=== PATIENT | female | born 1940 | race Caucasian/White ===

== ENCOUNTER 2018-01-09 08:58 | Emergency (ER) | payer MEDICARE, OTHER ==
[~2018-01-09] VITALS: Ht 157.5 cm; Wt 75.7 kg
[~2018-01-09 08:58] MED LIST: DEXILANT60 MG PO; KEFLEX500 MG; LISINOPRIL10 MG PO; LISINOPRIL5 MG; PANTOPRAZOLE SO40 MG PO
[2018-01-09 11:44] LABS: BASOPHILS % 0.7 % (0.0-1.0); EOSINOPHILS # (AUTO) 0.1 (0.0-0.4); EOSINOPHILS % 1.4 % (0.0-6.0); HEMATOCRIT 39.3 % (34.2-44.1); HEMOGLOBIN 12.9 g/dL (12.0-16.0); LYMPHOCYTES # (AUTO) 1.4 (1.0-3.2); MEAN CORPUSCULAR HEMOGLOBIN 28.4 pg (28-32); MEAN CORPUSCULAR HGB CONC 32.8 g/dL (31-35); MEAN CORPUSCULAR VOLUME 86.4 fL (81-99); MONOCYTES # (AUTO) 0.4 (0.2-0.8); MONOCYTES % 7.6 % (4.4-11.3); NEUTROPHILS # (AUTO) 3.6 (2.1-6.9); NEUTROPHILS % 65.1 % (38.7-80.0); PLATELET COUNT 220 x10e3/uL (140-360); RED BLOOD COUNT 4.55 x10e6/uL (3.6-5.1); RED CELL DISTRIBUTION WIDTH 13.2 % (11.7-14.4)
--- NOTE | 2018-01-09 11:49 | Diagnostic Imaging Report ---
PROCEDURE: CT ABDOMEN AND PELVIS WITHOUT CONTRAST TECHNIQUE: The abdomen and pelvis were scanned utilizing a multidetector helical scanner from the diaphragm to the lesser trochanter after the oral administration of 250 cc of H20. No IV contrast was administered per request. Coronal and sagittal multiplanar reformations were obtained. COMPARISON: None. INDICATIONS: ABDOMEN PAIN FINDINGS: ABSENCE OF INTRAVENOUS CONTRAST DECREASES SENSITIVITY FOR DETECTION OF FOCAL LESIONS AND VASCULAR PATHOLOGY. LOWER THORAX: Small bilateral fat containing Bochdalek hernias. There is an 8 mm ground glass opacity in the right middle lobe on series 2, image 3. Additional pleural based right lower lobe solid nodule measuring 7 mm on series 3, image 19. HEPATOBILIARY: Left hepatic lobe cyst. Right hepatic lobe subcentimeter hypodensity, too small to characterize, but likely a cyst. No biliary ductal dilatation. Status post cholecystectomy. SPLEEN: No splenomegaly. PANCREAS: No focal masses or ductal dilatation. ADRENALS: No adrenal nodules. KIDNEYS/URETERS: No hydronephrosis, stones, or solid mass lesions. PELVIC ORGANS/BLADDER: Unremarkable. PERITONEUM / RETROPERITONEUM: No free air or fluid. There is a 2.5 x 3.2 x 3.4 cm well circumscribed mesenteric mass without calcification or surrounding scarring. LYMPH NODES: No lymphadenopathy. Small subcentimeter mesenteric lymph nodes surrounding the mesenteric mass. VESSELS: Atherosclerotic calcifications of the abdominal aorta and branch vessels. Left upper abdominal varicosities. GI TRACT: No distention or wall thickening. Diverticulosis without CT evidence of diverticulitis. BONES AND SOFT TISSUES: Unremarkable. IMPRESSION: Solid, well-circumscribed mesenteric mass measuring up to 3.2 cm. No evidence of surrounding lymphadenopathy. Differential includes desmoid tumor, although lymphoma and carcinoid are also on the differential. A contrast enhanced CT of the chest, abdomen, and pelvis is recommended for further evaluation. Image guided biopsy may also be considered. A 7 mm solid right lower lobe solid pulmonary nodule and 8 mm ground glass nodule in the middle lobe are indeterminate. A contrast enhanced chest CT is recommended for further evaluation. Dictated by: SERA WILEY M.D. on 01/09/2018 at 11:54 Electronically approved by: SERA WILEY M.D. on 01/09/2018 at 11:54
[2018-01-09 11:51] LABS: INR 1.19; PARTIAL THROMBOPLASTIN TIME 32.2 seconds (23.8-35.5); PROTHROMBIN TIME 14.2 seconds (11.9-14.5)
[2018-01-09 12:00] LABS: ALANINE AMINOTRANSFERASE 8 IU/L (0-55); ALBUMIN/GLOBULIN RATIO 1.3 (0.8-2.0); ALKALINE PHOSPHATASE 65 IU/L (40-150); ANION GAP 13.7 mmol/L (8-16); BLOOD UREA NITROGEN 16 mg/dL (7-26); BUN/CREATININE RATIO 20 (6-25); CALCIUM 9.1 mg/dL (8.4-10.2); CARBON DIOXIDE 24 mmol/L (22-29); CHLORIDE 105 mmol/L (98-107); CREATINE KINASE 74 IU/L (29-168); EST GLOMERULAR FILTRATION RATE > 60 ML/MIN (60-); GLUCOSE 93 mg/dL (74-118); LIPASE 26 U/L (8-78); POTASSIUM 3.7 mmol/L (3.5-5.1); SODIUM 139 mmol/L (136-145)
[2018-01-09 12:03] LABS: BILIRUBIN,URINE NEGATIVE (NEGATIVE); CLARITY,URINE CLEAR (CLEAR); COLOR,URINE YELLOW (YELLOW); KETONES,URINE TRACE (NEGATIVE); LEUKOCYTE ESTERASE ,URINE TRACE (NEGATIVE); NITRITE,URINE NEGATIVE (NEGATIVE); PROTEIN,URINE DIPSTICK NEGATIVE (NEGATIVE); URINE UROBILINOGEN 0.2 mg/dL (0.2 - 1)
--- NOTE | 2018-01-09 12:07 | Diagnostic Imaging Report ---
Examination: CT head without contrast Clinical Indication: Unsteady gait. Technique: Transaxial noncontrast images from the skull base through the vertex were obtained. Sagittal and coronal reformatted images were done. Comparison: Head CT performed July 20, 2016. Findings: Scalp: No abnormalities. Bones: Intact. No fractures. No blastic or lytic lesions. Brain sulci: Mild volume loss for patient's age. Ventricles: No hydrocephalus. Extra-axial space: No abnormalities. Parenchyma: No masses, hemorrhage, or acute or chronic cortical based vascular insults. Suprasellar region: No abnormalities. Craniocervical junction: The foramen magnum is patent. No Chiari one malformation. Incidental findings: Atherosclerotic calcification of the cavernous and supraclinoid internal carotid arteries. Impression: 1. No acute intracranial finding when compared to prior head CT performed July 20, 2016. 2. Mild volume loss. Signed by: Dr. Karen García M.D. on 01/09/2018 12:03 PM
[2018-01-09 12:19] LABS: BACTERIA,URINE RARE /HPF; EPITHELIAL CELLS,URINE FEW /LPF; RBC,URINE 0-5 /HPF (0-5)
[2018-01-09 12:21] LABS: TRANSITIONAL EPI CELLS,URINE RARE
[2018-01-09] MEDS ORDERED: KEFLEX500 MG PO (12:38)
== END 2018-01-09 13:32 | disposition home or self-care (01) ==
LOC: ER 08:58
DX: R53.1 Weakness (principal); R55 Syncope and collapse; N39.0 Urinary tract infection, site not specified
CPT/HCPCS: 36415; 70450; 74176; 80053; 81001; 82550; 82553; 83605; 83690; 84484; 85025; 85610; 85730; 93005; 99284

== ENCOUNTER 2022-09-23 02:54 | Inpatient (IN) | payer MEDICARE, OTHER ==
[~2022-09-23] VITALS: Ht 152.4 cm; Wt 72.1 kg
[~2022-09-23 02:54] MED LIST changes: +KEFLEX500 MG PO
[2022-09-23] MEDS ORDERED: ENOXAPARIN INJ 80 MG/0.8 ML SYR SC ONE ×2 (03:00→03:04)
[2022-09-23] MEDS ORDERED: METOPROLOL TARTRATE INJ 1 MG/ML VIAL IV ONE (03:00)
[2022-09-23] MEDS ORDERED: METOPROLOL TARTRATE 25 MG TAB PO ONE ×2 (03:00→04:15)
[2022-09-23] MEDS ORDERED: METOPROLOL TARTRATE INJ 1 MG/ML VIAL ONE (03:04)
[2022-09-23] MEDS ORDERED: METOPROLOL TARTRATE 25 MG TAB ONE (03:04)
[2022-09-23 03:08] LABS: BASOPHILS # (AUTO) 0.1 (0.0-0.1); BASOPHILS % 0.7 % (0.0-1.0); EOSINOPHILS # (AUTO) 0.5 (0.0-0.4); EOSINOPHILS % 6.5 % (0.0-6.0); HEMATOCRIT 40.1 % (34.2-44.1); HEMOGLOBIN 13.1 g/dL (12.0-16.0); LYMPHOCYTES # (AUTO) 2.7 (1.0-3.2); MEAN CORPUSCULAR HEMOGLOBIN 28.4 pg (28-32); MEAN CORPUSCULAR HGB CONC 32.7 g/dL (31-35); MONOCYTES # (AUTO) 0.7 (0.2-0.8); MONOCYTES % 8.7 % (4.4-11.3); NEUTROPHILS # (AUTO) 3.8 (2.1-6.9); PLATELET COUNT 219 x10e3/uL (140-360); RED BLOOD COUNT 4.61 x10e6/uL (3.6-5.1); RED CELL DISTRIBUTION WIDTH 14.1 % (11.7-14.4)
[2022-09-23 03:18] LABS: INR 0.86; PROTHROMBIN TIME 12.2 seconds (11.9-14.5)
[2022-09-23 03:19] LABS: PARTIAL THROMBOPLASTIN TIME 32.7 seconds (23.8-35.5)
[2022-09-23 03:25] LABS: ALANINE AMINOTRANSFERASE 9 IU/L (0-55); ALBUMIN 4.1 g/dL (3.5-5.0); ALBUMIN/GLOBULIN RATIO 1.2 (0.8-2.0); ALKALINE PHOSPHATASE 69 IU/L (40-150); ANION GAP 15.3 mmol/L (8-16); BLOOD UREA NITROGEN 19 mg/dL (7-26); BUN/CREATININE RATIO 23 (6-25); CALCIUM 9.3 mg/dL (8.4-10.2); CARBON DIOXIDE 24 mmol/L (22-29); CHLORIDE 104 mmol/L (98-107); CREATINE KINASE 61 IU/L (29-168); CREATININE, SERUM 0.83 mg/dL (0.57-1.11); GLUCOSE 116 mg/dL (74-118); POTASSIUM 3.3 mmol/L (3.5-5.1); SODIUM 140 mmol/L (136-145)
[2022-09-23] MEDS ORDERED: METOPROLOL TARTRATE INJ 1 MG/ML VIAL IV PRN (04:15)
[2022-09-23] MEDS ORDERED: METOPROLOL TARTRATE 50 MG TAB PO SCH (04:15)
[2022-09-23] MEDS ORDERED: ONDANSETRON HCL INJ 2MG/ML 2ML 2 MG/ML VIAL IV PRN (04:15)
[2022-09-23] MEDS ORDERED: SODIUM CHLORIDE FLUSH 10 ML SYR INJ PRN (04:15)
[2022-09-23 07:56] VITALS: BP 112/87
[2022-09-23 08:31] VITALS: BP 115/74
[2022-09-23 09:00] VITALS: BP 115/74
[2022-09-23] MEDS ORDERED: METOPROLOL SUCCINATE 50 MG TAB XL PO SCH (09:45)
[2022-09-23] MEDS: APIXAB 2.5 MG TABLET PO SCH ×2 (10:52→17:02)
[2022-09-23] MEDS ORDERED: HYDROCHLOROTH12.5 MG PO (10:52)
[2022-09-23 12:12] VITALS: BP 120/73
[2022-09-23 12:53] LABS: CREATINE KINASE MB 1.2 ng/mL (0-5.0)
[2022-09-23 16:21] VITALS: BP 117/78
[2022-09-23] MEDS ORDERED: POTASSIUM CHLORIDE 20 MEQ TAB CR PO ONE (17:00)
[2022-09-23] MEDS ORDERED: TOPROL XL25 MG PO (17:03)
[2022-09-23] MEDS ORDERED: ELIQUIS2.5 MG PO (17:03)
[2022-09-24] MEDS ORDERED: METOPROLOL SUCCINATE 25 MG TAB XL PO SCH (09:00)
== END 2022-09-23 17:57 | disposition home or self-care (01) | DRG 310 ==
LOC: ER 02:59 → ERHOLD 04:16 → MED/SURG3 07:57
PROVIDERS: ADMIT Internal Medicine; ATTEND Internal Medicine
DX: I48.91 Unspecified atrial fibrillation (principal); I10 Essential (primary) hypertension; K21.9 Gastro-esophageal reflux disease without esophagitis; K44.9 Diaphragmatic hernia without obstruction or gangrene; K57.90 Diverticulosis of intestine, part unspecified, without perforation or abscess without bleeding; K31.84 Gastroparesis; Z20.822 Contact with and (suspected) exposure to COVID-19; Z90.49 Acquired absence of other specified parts of digestive tract
CPT/HCPCS: 36415; 71045; 80053; 82550; 82553; 84484; 85025; 85610; 85730; 93005; 94799; 99284; J1650

== ENCOUNTER 2024-02-01 19:41 | Emergency (ER) | payer MEDICARE, OTHER ==
[~2024-02-01] VITALS: Ht 157.5 cm; Wt 72.1 kg
[~2024-02-01 19:41] MED LIST changes: +AMOX TR-K CLV1 EAC2 PO; +CEPHALEXIN500 MG PO; +ELIQUIS2.5 MG PO; +HYDROCHLOROTH12.5 MG PO; +METRONIDAZOLE500 MG PO; +ONDANSETRON ODT4 MG SL; +TOPROL XL25 MG PO
[2024-02-01 19:50] VITALS: PULSE 80; RESP 18; TEMP 98.4
[2024-02-01] MEDS ORDERED: BACITRACIN ZINC 0.9GM TP ONE (20:49)
[2024-02-01] MEDS ORDERED: CEPHALEXIN500 MG PO (21:02)
[2024-02-01] MEDS ORDERED: ULTRAM 50MG50 MG PO (21:02)
[2024-02-01] MEDS: TETANUS/DIPHTHERIA TOX ADULT 0.5 ML SYR IM ONE (21:03)
[2024-02-01] MEDS: LIDOCAINE HCL 1% LOCAL INJ 20 ML VIAL INJ STA (21:04)
[2024-02-01 21:12] VITALS: BP 135/78; PULSE 76; RESP 18; TEMP 98.2; O2SAT 98
== END 2024-02-01 21:14 | disposition home or self-care (01) ==
LOC: ER 19:48
DX: S61.211A Laceration without foreign body of left index finger without damage to nail, initial encounter (principal); W29.3XXA Contact with powered garden and outdoor hand tools and machinery, initial encounter; Y93.H2 Activity, gardening and landscaping; Y92.89 Other specified places as the place of occurrence of the external cause; I10 Essential (primary) hypertension; I48.91 Unspecified atrial fibrillation; K21.9 Gastro-esophageal reflux disease without esophagitis
CPT/HCPCS: 90714; 99284

== ENCOUNTER 2024-02-09 18:52 | Emergency (ER) | payer MEDICARE, OTHER ==
[~2024-02-09] VITALS: Ht 157.5 cm; Wt 72.1 kg
[~2024-02-09 18:52] MED LIST changes: +ULTRAM 50MG50 MG PO
[2024-02-09 18:57] VITALS: PULSE 77; RESP 16; TEMP 98.2; O2SAT 100
[2024-02-09] MEDS ORDERED: AUGMENTIN 500-1 EACH PO (19:10)
[2024-02-27] MEDS ORDERED: METOPROLOL SUCC25 MG PO (09:32)
== END 2024-02-09 19:45 | disposition home or self-care (01) ==
LOC: ER 19:09
DX: Z48.02 Encounter for removal of sutures (principal)
CPT/HCPCS: 99283

== ENCOUNTER → 2024-03-03 | Day surgery (SDC) | payer MEDICARE, OTHER ==
[2024-02-27 16:18] LABS: BASOPHILS % 0.6 % (0.0-1.0); EOSINOPHILS # (AUTO) 0.1 (0.0-0.4); EOSINOPHILS % 2.2 % (0.0-6.0); HEMATOCRIT 39.9 % (34.2-44.1); HEMOGLOBIN 12.6 g/dL (12.0-16.0); LYMPHOCYTES # (AUTO) 1.5 (1.0-3.2); MEAN CORPUSCULAR HGB CONC 31.6 g/dL (31-35); MEAN CORPUSCULAR VOLUME 91.7 fL (81-99); MONOCYTES # (AUTO) 0.5 (0.2-0.8); MONOCYTES % 8.7 % (4.4-11.3); NEUTROPHILS # (AUTO) 3.3 (2.1-6.9); NEUTROPHILS % 61.3 % (38.7-80.0); PLATELET COUNT 208 x10e3/uL (140-360); RED BLOOD COUNT 4.35 x10e6/uL (3.6-5.1); RED CELL DISTRIBUTION WIDTH 13.5 % (11.7-14.4)
[~2024-03-03] MED LIST changes: +AUGMENTIN 500-1 EACH PO; +BUPIVACAINE HCL 0.5% INJ 30 ML VIAL INJ ONE; +FENTANYL CITRATE/PF 100MCG/2 ML INJ ONE; +GLYCOPYRROLATE INJ 0.2 MG/ML VIAL ONE; +LIDOCAINE HCL 2% LOCAL INJ 5 ML SDV VIAL INJ ONE; +METOPROLOL SUCC25 MG PO; +MIDAZOLAM HCL 2 MG/2 ML VIAL ONE; +PROPOFOL IV EMULSION 10 MG/ML 20 ML VIAL ONE
[2024-03-03] MEDS: LACTATED RINGER'S 1,000 ML ONE (06:01)
[2024-03-03 07:14] VITALS: TEMP 97.8
[2024-03-03 07:30] VITALS: BP 124/72; PULSE 69; RESP 15; O2SAT 96
== END | disposition home or self-care (01) ==
LOC: OR 06:13
PROVIDERS: ATTEND Plastic Surgery
DX: S61.201A Unspecified open wound of left index finger without damage to nail, initial encounter (principal); I10 Essential (primary) hypertension; I48.91 Unspecified atrial fibrillation; K21.9 Gastro-esophageal reflux disease without esophagitis; Y93.H2 Activity, gardening and landscaping; Y99.8 Other external cause status; Z88.6 Allergy status to analgesic agent; Z88.1 Allergy status to other antibiotic agents; Z88.8 Allergy status to other drugs, medicaments and biological substances; Z01.810 Encounter for preprocedural cardiovascular examination; Z01.812 Encounter for preprocedural laboratory examination; Z01.818 Encounter for other preprocedural examination; Z79.899 Other long term (current) drug therapy; Z79.02 Long term (current) use of antithrombotics/antiplatelets
CPT/HCPCS: 13132; 36415; 71046; 85025; 93005; J0690; J2001; J2250; J2704; J3010; J7121

== ENCOUNTER 2024-04-24 08:30 | Emergency (ER) | payer MEDICARE, OTHER ==
[~2024-04-24] VITALS: Ht 157.5 cm; Wt 73.0 kg
[~2024-04-24 08:30] MED LIST changes: -BUPIVACAINE HCL 0.5% INJ 30 ML VIAL INJ ONE; -FENTANYL CITRATE/PF 100MCG/2 ML INJ ONE; -GLYCOPYRROLATE INJ 0.2 MG/ML VIAL ONE; -LIDOCAINE HCL 2% LOCAL INJ 5 ML SDV VIAL INJ ONE; -MIDAZOLAM HCL 2 MG/2 ML VIAL ONE; -PROPOFOL IV EMULSION 10 MG/ML 20 ML VIAL ONE
[2024-04-24 08:50] VITALS: TEMP 98.5
[2024-04-24 09:14] LABS: BASOPHILS % 0.3 % (0.0-1.0); EOSINOPHILS % 0.2 % (0.0-6.0); HEMOGLOBIN 12.4 g/dL (12.0-16.0); LYMPHOCYTES # (AUTO) 0.7 (1.0-3.2); LYMPHOCYTES % 11.7 % (18.0-39.1); MEAN CORPUSCULAR HEMOGLOBIN 29.2 pg (28-32); MEAN CORPUSCULAR HGB CONC 31.8 g/dL (31-35); MONOCYTES # (AUTO) 0.7 (0.2-0.8); MONOCYTES % 11.5 % (4.4-11.3); NEUTROPHILS # (AUTO) 4.7 (2.1-6.9); NEUTROPHILS % 76.1 % (38.7-80.0); PLATELET COUNT 175 x10e3/uL (140-360); RED BLOOD COUNT 4.24 x10e6/uL (3.6-5.1); RED CELL DISTRIBUTION WIDTH 13.6 % (11.7-14.4); WHITE BLOOD COUNT 6.16 x10e3/uL (4.8-10.8)
[2024-04-24 09:25] LABS: CLARITY,URINE CLEAR (CLEAR); COLOR,URINE YELLOW (YELLOW); LEUKOCYTE ESTERASE ,URINE NEGATIVE (NEGATIVE); NITRITE,URINE NEGATIVE (NEGATIVE); PH,URINE 6 (5 - 7)
[2024-04-24 09:26] LABS: BILIRUBIN,URINE NEGATIVE (NEGATIVE); GLUCOSE, URINE NEGATIVE (NEGATIVE); KETONES,URINE NEGATIVE (NEGATIVE); PROTEIN,URINE DIPSTICK NEGATIVE (NEGATIVE); URINE UROBILINOGEN 0.2 mg/dL (0.2 - 1)
[2024-04-24 09:28] LABS: BACTERIA,URINE FEW /HPF; EPITHELIAL CELLS,URINE FEW /LPF; RBC,URINE 21-50 /HPF (0-5); WBC,URINE (MAN) 0-5 /HPF (0-5)
[2024-04-24 09:28] LABS: INR 1.07; PROTHROMBIN TIME 14.6 seconds (11.9-14.5)
[2024-04-24 09:33] VITALS: BP 136/80; PULSE 92
[2024-04-24] MEDS: SODIUM CHLORIDE 0.9% 500ML 500 ML IV ONE (09:33)
[2024-04-24] MEDS: METOPROLOL TARTRATE 25 MG TAB PO ONE (09:33)
[2024-04-24 09:38] LABS: ALBUMIN 3.9 g/dL (3.5-5.0); ALBUMIN/GLOBULIN RATIO 1.2 (0.8-2.0); ANION GAP 13.7 mmol/L (8-16); BILIRUBIN,TOTAL 1.1 mg/dL (0.2-1.2); CALCIUM 8.9 mg/dL (8.4-10.2); CREATININE, SERUM 0.78 mg/dL (0.57-1.11); MAGNESIUM 2.1 MG/DL (1.3-2.1); POTASSIUM 3.7 mmol/L (3.5-5.1); TOTAL PROTEIN 7.1 g/dL (6.5-8.1)
[2024-04-24 09:43] LABS: TROPONIN I 0.003 ng/mL (0-0.300)
[2024-04-24 10:30] VITALS: PULSE 70; RESP 16; O2SAT 98
== END 2024-04-24 10:58 | disposition home or self-care (01) ==
LOC: ER 08:34
DX: R00.2 Palpitations (principal); I49.1 Atrial premature depolarization; I10 Essential (primary) hypertension; I48.91 Unspecified atrial fibrillation; K21.9 Gastro-esophageal reflux disease without esophagitis
CPT/HCPCS: 36415; 71045; 80053; 81001; 82550; 83735; 83880; 84484; 85025; 85610; 85730; 93005; 99284; J7040

== ENCOUNTER → 2025-02-04 | Day surgery (SDC) | payer MEDICARE, OTHER ==
[2025-01-28 14:54] LABS: BASOPHILS % 0.7 % (0.0-1.0); EOSINOPHILS % 4.4 % (0.0-6.0); LYMPHOCYTES % 28.5 % (18.0-39.1); MONOCYTES % 9.6 % (4.4-11.3); NEUTROPHILS % 56.8 % (38.7-80.0); RED CELL DISTRIBUTION WIDTH 13.2 % (11.7-14.4)
[2025-01-28 15:18] LABS: EST GLOMERULAR FILTRATION RATE 81.0 ML/MIN (>=60)
[~2025-02-04] MED LIST changes: +ACETAMINOPHEN 1000 MG/100 ML 100 ML IV ONE; +DEXAMETHASONE SOD PHOS INJ 4 MG/ML SDV ONE; +FAMOTIDINE20 MG PO; +FENTANYL CITRATE/PF 100MCG/2 ML INJ ONE; +HYDROCHLOROTHIA25 MG PO; +HYDROCODON-ACE1 EA11 PO; +LIDOCAINE HCL 2% LOCAL INJ 5 ML SDV VIAL INJ ONE; +ONDANSETRON HCL INJ 2MG/ML 2ML 2 MG/ML VIAL ONE; +PROPOFOL IV EMULSION 10 MG/ML 20 ML VIAL ONE; +SEVOFLURANE INHAL SOLN 250 ML PEN BTL ONE
[2025-02-04] MEDS: LACTATED RINGER'S 1,000 ML ONE (06:08)
[2025-02-04 07:15] VITALS: TEMP 97.6
[2025-02-04 08:10] VITALS: BP 135/70; PULSE 61; RESP 12; O2SAT 97
== END | disposition home or self-care (01) ==
LOC: OR 05:26
PROVIDERS: ATTEND Plastic Surgery
DX: G56.01 Carpal tunnel syndrome, right upper limb (principal); M65.821 Other synovitis and tenosynovitis, right upper arm; I10 Essential (primary) hypertension; I48.0 Paroxysmal atrial fibrillation; I83.11 Varicose veins of right lower extremity with inflammation; I83.12 Varicose veins of left lower extremity with inflammation; K44.9 Diaphragmatic hernia without obstruction or gangrene; K21.9 Gastro-esophageal reflux disease without esophagitis; Z88.5 Allergy status to narcotic agent; Z88.1 Allergy status to other antibiotic agents; Z79.01 Long term (current) use of anticoagulants; Z79.899 Other long term (current) drug therapy; Z68.33 Body mass index [BMI] 33.0-33.9, adult; Z01.810 Encounter for preprocedural cardiovascular examination; Z01.812 Encounter for preprocedural laboratory examination
CPT/HCPCS: 25115; 36415; 64721; 80048; 85025; 93005; J0131; J0690; J1100; J2003; J2405; J2704; J3010; J7121